=== PATIENT | male | born 1940 | race Caucasian/White ===

== ENCOUNTER 2017-03-01 09:56 | Emergency (ER) | payer MEDICARE, OTHER ==
[~2017-03-01 09:56] MED LIST: ACTOS15 MG PO; ADVIL200 MG PO; AMILORIDE HCL5 MG PO; AUGMENTIN PO; AVANDAMET 4 MG/1 TAB; AVANDIA4 MG; AVAPRO150 MG PO; BABY ASPIRIN81 MG PO; BENAZEPRIL HCL40 MG; BENAZEPRIL-HCT; BYSTOLIC5 MG PO; CALCIUM 600 +1 EAC9 PO; CALCIUM 6001.5 G PO; CATAPRES0.1 MG; CATAPRES0.2 MG PO; CINNAMON500 MG PO; COLACE100 MG PO; COUMADIN5 MG PO; DOCUSATE CALCI100 MG; FLOMAX0.4 MG PO; GABAPENTIN300 MG PO; GLUCOPHAGE500 MG; GLYBURIDE MICRON6 MG; IBUPROFEN200 MG; IRBESARTAN PO; ISOSORBIDE MONO60 MG; LANTUS100 U/ML; LANTUS100 U/ML SC; LASIX80 MG PO; LIPITOR20 MG; LONITEN2.5 MG PO; LOVENOX; LOVENOX120 MG/0.8 SQ; LOVENOX40 MG/0.4 SQ; METAMUCIL1 EACH PO; METFORMIN HCL500 MG; METOPROLOL TAR100 MG PO; MICARDIS80 MG PO; MINOXIDIL2.5 MG PO; NEURONTIN300 MG PO; NITROGLYCERIN0.4 MG SL; NITROQUICK0.4 MG; NORCO 7.5/3251 TA1 PO; NORVASC10 MG PO; NORVASC5 M1 PO; OMEPRAZOLE20 MG PO; OXYCODONE APAP; OXYCODONE-APAP; OXYGEN; POLYETHYLENE G527 GM; POTASSIUM99 M1 PO; POTASSIUM99 MG; RANEXA500 MG PO; SENOKOT-S TABLE1 TAB PO; TOPROL XL100 MG; VITAMIN D31000 UNI2 PO; VITAMIN E; ZAROXOLYN5 MG PO
[2017-03-01] MEDS ORDERED: COUMADIN5 M2 PO (10:24)
[2017-03-01] MEDS ORDERED: HYDRALAZINE HCL25 M1 PO (10:24)
[2017-03-01] MEDS ORDERED: NOVOLOG FL100 UNIT/2 SC (10:25)
[2017-03-01] MEDS ORDERED: AMANTADINE100 MG PO (10:26)
[2017-03-01] MEDS ORDERED: BACITRACIN28.4 G2 TP (10:26)
[2017-03-01] MEDS ORDERED: REMERON15 M1 PO (10:27)
[2017-03-01] MEDS ORDERED: SEROQUEL25 M2 PO (10:27)
[2017-03-01] MEDS ORDERED: NYSTOP60 GM TP (10:27)
[2017-03-01] MEDS ORDERED: FIORICET 50-301 EAC1 PO (10:28)
[2017-03-01] MEDS ORDERED: SENNA8.8 MG/51 PO (10:28)
[2017-03-01] MEDS ORDERED: LOVENOX120 MG/0.1 SC (10:29)
[2017-03-01] MEDS ORDERED: ATIVAN0.5 M1 PO (10:29)
[2017-03-01] MEDS ORDERED: ASPIRIN81 M1 PO (10:30)
[2017-03-01] MEDS ORDERED: GABAPENTIN250 MG/51 PO (10:30)
[2017-03-01] MEDS ORDERED: POTASSIUM20 MEQ/13 PO (10:30)
[2017-03-01] MEDS ORDERED: SILACE50 MG/5 ML PO (10:31)
[2017-03-01] MEDS ORDERED: L-ARGININE1000 M1 PO (10:32)
[2017-03-01] MEDS ORDERED: ZOFRAN ODT4 MG SL (10:32)
[2017-03-01] MEDS ORDERED: LABETALOL HCL200 M1 PO (10:33)
[2017-03-01] MEDS ORDERED: [UNRECOGNIZED DRUG - OTHER] IV (10:33)
[2017-03-01] MEDS ORDERED: CATAPRES0.1 M1 PO (10:34)
[2017-03-01] MEDS ORDERED: ALLOPURINOL300 M1 PO (10:34)
[2017-03-01] MEDS ORDERED: GLUCOSE4 GM CH (10:34)
[2017-03-01] MEDS ORDERED: AVAPRO150 M1 PO (10:34)
[2017-03-01] MEDS ORDERED: DEXTROSE 525 GM/501 IV (10:35)
[2017-03-01] MEDS ORDERED: GLUCAGEN1 MG IM (10:35)
[2017-03-01] MEDS ORDERED: CYMBALTA30 M1 PO (10:36)
[2017-03-01] MEDS ORDERED: LASIX20 M1 PO (10:36)
[2017-03-01] MEDS ORDERED: CALCIUM 600 +1 EA12 PO (10:36)
[2017-03-01] MEDS ORDERED: NORVASC5 M2 PO (10:36)
[2017-03-01] MEDS ORDERED: LEVEMIR FL100 UNIT/2 SC (10:37)
[2017-03-01] MEDS ORDERED: ULTRAM50 M1 PO (10:37)
[2017-03-01] MEDS ORDERED: CALMOSEPTINE OI71 G1 TP (10:38)
[2017-03-01] MEDS ORDERED: NITROGLYCERIN0.4 M2 SL (10:38)
[2017-03-01] MEDS ORDERED: MILK OF MAGNESIA PO (10:39)
[2017-03-01] MEDS ORDERED: TYLENOL325 M2 PO (10:39)
[2017-03-01] MEDS ORDERED: MAALOX MAXIMUM355 M1 PO (10:39)
[2017-03-01] MEDS ORDERED: AMILORIDE HCL5 M1 PO (10:39)
[2017-03-01] MEDS ORDERED: ENEMEEZ283 MG/5 M PR (10:40)
[2017-03-01] MEDS ORDERED: BISCOLAX10 MG PR (10:40)
== END 2017-03-01 13:40 | disposition expired ==
LOC: EDMED 09:56
DX: E87.5 Hyperkalemia (principal); N17.9 Acute kidney failure, unspecified; N18.9 Chronic kidney disease, unspecified; I48.91 Unspecified atrial fibrillation; Z95.1 Presence of aortocoronary bypass graft; Z87.891 Personal history of nicotine dependence; Z79.899 Other long term (current) drug therapy
CPT/HCPCS: J7030